=== PATIENT | female | born 1985 | race Caucasian/White ===

== ENCOUNTER 2023-05-13 01:02 | Emergency (ER) | payer MEDICAID ==
[~2023-05-13] VITALS: Ht 165.1 cm; Wt 63.6 kg
[2023-05-13 01:49] LABS: BASOPHILS % (AUTO) 0.7 % (0-1); EOSINOPHILS # (AUTO) 0.1 X10'3 (0-0.9); EOSINOPHILS % (AUTO) 1.7 % (0-6); HEMATOCRIT 39.5 % (35.0-45.0); HEMOGLOBIN 13.2 g/dl (12.0-16.0); LYMPHOCYTES # (AUTO) 1.9 X10'3 (1.1-4.8); LYMPHOCYTES % (AUTO) 28.4 % (21-51); MEAN CORPUSCULAR HEMOGLOBIN 32.2 PG (27.0-31.0); MEAN CORPUSCULAR HGB CONC 33.4 g/dL (33.0-36.5); MEAN CORPUSCULAR VOLUME 96.4 FL (78-98); MEAN PLATELET VOLUME 7.9 FL (7.4-10.4); MONOCYTES # (AUTO) 0.3 X10'3 (0-0.9); NEUTROPHILS # (AUTO) 4.2 X10'3 (1.8-7.7); NEUTROPHILS % (AUTO) 64.2 % (42-75); PLATELET COUNT 205 X10'3 (140-440); RED CELL DISTRIBUTION WIDTH 11.9 % (11.5-14.5); WHITE BLOOD COUNT 6.6 X10'3 (4.5-11.0)
[2023-05-13] MEDS ORDERED: normal saline 1000ML IV soln IVB ONE (01:55)
[2023-05-13 01:58] VITALS: BP 126/87
[2023-05-13 02:05] LABS: ALANINE AMINOTRANSFERASE 14 U/L (12-78); ALBUMIN 3.7 G/DL (3.4-5.0); ALKALINE PHOSPHATASE 37 IU/L (46-116); ANION GAP 9 (8-16); ASPARTATE AMINO TRANSFERASE 11 U/L (10-37); BILIRUBIN,TOTAL 0.4 MG/DL (0.1-1.0); BLOOD UREA NITROGEN 8 MG/DL (7-18); BUN/CREATININE RATIO 8.7 (10.0-20.0); CHLORIDE 103 MMOL/L (99-107); CREATININE 0.92 MG/DL (0.40-0.90); GLUCOSE 153 MG/DL (70-104); POTASSIUM 3.5 MMOL/L (3.5-5.1); SODIUM 139 MMOL/L (135-145); TOTAL CARBON DIOXIDE 27.3 MMOL/L (24-32); TOTAL PROTEIN 7.3 G/DL (6.4-8.2); eGFR 69 ML/MIN
[2023-05-13 02:26] LABS: D-DIMER < 0.19 MG/L FEU (0-0.50)
[2023-05-13 02:27] LABS: CALCIUM 8.7 MG/DL (8.5-10.1)
[2023-05-13 03:03] LABS: URINE HCG NEGATIVE (NEG)
--- NOTE | 2023-05-13 03:17 | NUR ---
IV DC'D PT BEING DISCHARGED DRESSING APPLIED
== END 2023-05-13 03:18 | disposition home or self-care (01) ==
LOC: ER 01:04
DX: R55 Syncope and collapse (principal); R00.2 Palpitations; H53.489 Generalized contraction of visual field, unspecified eye; Z88.8 Allergy status to other drugs, medicaments and biological substances; Z79.3 Long term (current) use of hormonal contraceptives
CPT/HCPCS: 36415; 71045; 80053; 81025; 83880; 84443; 84484; 85025; 85379; 93005; 96360; 99285; J7030